=== PATIENT | male | born 1995 | race Two or more races ===

== ENCOUNTER 2020-10-28 17:25 | Emergency (ER) | payer OTHER ==
--- NOTE | 2020-10-28 18:21 | XRAY Report ---
PROCEDURE: Hand 3 View RT INDICATIONS: Trauma TECHNIQUE: 3 views of the hand(s) acquired. COMPARISON: None FINDINGS: Bones: No acute fractures or dislocations. No suspicious bony lesions. Soft tissues: No suspicious soft tissue calcifications. IMPRESSION: Right hand without acute fracture or dislocation. If there is persistent clinical concern for a radiographically occult fracture, recommend immobilizat ion and repeat imaging in 10 to 14 days. Reviewed by: Quentin Bean MD on 10/28/2020 6:19 PM PDT Approved by: Quentin Bean MD on 10/28/2020 6:19 PM PDT Station ID: [id number]
[2020-10-28] MEDS: BACITRACIN ZINC OINT 1 PACKET TOP STA (19:41)
[2020-10-28] MEDS: IBUPROFEN 600 MG TABLET PO STA (19:41)
--- NOTE | 2020-10-28 19:45 | ED Physician Documentation ---
History of Present Illness - Stated complaint Stated Complaint: RT FINGER INJ - Chief complaint Chief Complaint: Trauma Ext - Additonal information Additional information: 25-year-old male here with right ring finger nail avulsion as well as a contusion to the middle finger. He was using a wrench at work at slipped and he drove his hand into the ground. He has a partial avulsion of the right ring finger nailbed. Minor contusion to the middle finger. No history of previous injury. Patient is right-hand dominant. Review of Systems Constitutional: reports: Reviewed and negative Ears: reports: Reviewed and negative Nose: reports: Reviewed and negative Throat: reports: Reviewed and negative Cardiac: reports: Reviewed and negative Respiratory: reports: Reviewed and negative : reports: Reviewed and negative Skin: reports: Abrasion (s) (Right hand right ring finger nailbed) Musculoskeletal: reports: Extremity pain (Right hand) PD PAST MEDICAL HISTORY - Allergies Allergies/Adverse Reactions: Allergies Allergy/AdvReac Type Severity Reaction Status Date / Time Penicillins Allergy Rash Verified 10/28/20 17:43 PD ED PE EXPANDED - Extremities Extremities: Right hand (Tenderness of the distal right ring finger and PIP joint of the middle finger. Normal flexion extension against resistance. Normal grasp. Warm hand 2+ radial pulse.), Right finger(s) (Right ring finger with partial avulsion of the nail bed. The avulsed nail is trimmed away r evealing about 40% of the nailbed.) Results - Vitals Vitals: Vital Signs - 24 hr 10/28/20 17:43 Temperature 36.6 C Heart Rate 56 L Respiratory 16 Rate Blood Pressure 130/80 O2 Saturation 98 Oxygen O2 Source Room air - Rads (name of study) Right hand Radiology: Final report received (No acute fracture or dislocation) PD MEDICAL DECISION MAKING - ED course Complexity details: reviewed results, re-evaluated patient, d/w patient ED course: 25-year-old male presents to the ER with a right hand injury after his hand was driven into the ground while using a wrench. He does have a partial right nailbed avulsion. The avulsed nail was trimmed away. He also has a minor contusion of the PIP joint of the middle finger. X-ray does not reveal any obvious fractures and he is able to move and use the hand normally. Bacitracin applied to the contusion and avulsion injury. Recommend ibuprofen follow-up with [facility]. Emergent return precautions were discussed. Departure - Departure Disposition: 01 Home, Self Care Clinical Impression: Fingernail avulsion, partial Qualifiers: Encounter type: initial encounter Qualified Code(s): S61.309A - Unspecified open wound of unspecified finger with damage to nail, initial encounter Condition: Stable Record reviewed to determine appropriate education?: Yes Comments: Corbin you are seen in the ER today for contusion and avulsion to your right hand. The avulsion is where the nail was lifted away from the nailbed. The x- ray of your hand does not show any broken bones. I expect that your hand will be sore over the next 24 to 48 hours. We trimmed the nail away. You can wash your hand normally. I recommend that you take ibuprofen with food 2-3 times a day to help with discomfort. Apply bacitracin or any antibiotic ointment to the nailbed as well as to the abrasion on your middle finger. This should heal well with time. Follow-up with [facility] if not improving.
[2020-10-28 19:53] VITALS: BP 141/78
== END 2020-10-28 19:53 | disposition home or self-care (01) ==
LOC: ED 17:25
DX: S60.141A Contusion of right ring finger with damage to nail, initial encounter (principal); W27.8XXA Contact with other nonpowered hand tool, initial encounter; Y99.0 Civilian activity done for income or pay
CPT/HCPCS: 73130; 99281; 99283; A9270

== ENCOUNTER 2022-05-09 17:34 | Emergency (ER) | payer OTHER ==
[2022-05-09 17:43] VITALS: BP 138/77
--- OUTSIDE RECORDS SUMMARY | 2022-05-09 17:51 | EXTERNAL MEDICAL SUMMARY RPT | Continuity of Care Document ---
:1995 Author Organization [facility] Address [address] [place] [address] Phone Allergies No information. Encounters No information. Functional Status No information. Immunizations No information. Medications No information. Problems No information. Procedures No information. Results/Labs test date author facility value unit interpret ation Result panel 1 (unknown) (no (unknown) (unknown) (no value) (units (unk nown) date) unknown) (unknown) (no (unknown) (unknown) [id number] (units (unkno wn) date) unknown) (unknown) (no (unknown) (unknown) 02/03/22 (units (unkno wn) date) unknown) (unknown) (no (unknown) (unknown) [address] [place] [address] (units (unknown) date) unknown) (unknown) (no (unknown) (unknown) Accession Number: (units (unknown) date) [id number] unknown) (unknown) (no (unknown) (unknown) Age/Sex: 26 / M (units (unknown) date) Date of Service: unknown) (unknown) (no (unknown) (unknown) [place], [place] (units ( unknown) date) [id number] unknown) (unknown) (no (unknown) (unknown) Approved by: Karsten (units (unknown) date) Ross Parekh on unknown) 2022 at 15:56 (unknown) (no (unknown) (unknown) COMPARISON: None. (units (unknown) date) unknown) (unknown) (no (unknown) (unknown) : 1995 (units (unknown) date) Acct:[id number] unknown) (unknown) (no (unknown) (unknown) Dictated by: Karsten (units (unknown) date) Ross Parekh on unknown) 2022 at 15:56 (unknown) (no (unknown) (unknown) FINDINGS: A single (units (unknown) date) fluoroscopic spot unknown) image demonstrates intra-articular (unknown) (no (unknown) (unknown) Gadolinium (units (unk nown) date) unknown) (unknown) (no (unknown) (unknown) IMPRESSION: (units (un known) date) Successful unknown) fluoroscopically guided administration of dilute (unknown) (no (unknown) (unknown) INDICATIONS: PAIN (units (unknown) date) IN LEFT SHOULDER unknown) (unknown) (no (unknown) (unknown) [facility] (units (unknown) date) unknown) (unknown) (no (unknown) (unknown) Loc: RAD (units (unkno wn) date) unknown) (unknown) (no (unknown) (unknown) Ordering Provider: (units (unknown) date) Camron Shah MD unknown) (unknown) (no (unknown) (unknown) PROCEDURE: FL (units ( unknown) date) SHOULDER INJECTION unknown) MR/CT LT (unknown) (no (unknown) (unknown) Patient: (units (unkno wn) date) Corbin Balbuena MR#: unknown) M00 (unknown) (no (unknown) (unknown) Procedure: FL (units ( unknown) date) shoulder injection unknown) mr/ct LT (unknown) (no (unknown) (unknown) Signed (units (unkno wn) date) unknown) (unknown) (no (unknown) (unknown) TECHNIQUE: (units (unk nown) date) unknown) (unknown) (no (unknown) (unknown) The indications, (units (unknown) date) alternatives, unknown) benefits, risks, and complications of the (unknown) (no (unknown) (unknown) The needle was (units (unknown) date) removed and a unknown) dressing was applied. The patient was given (unknown) (no (unknown) (unknown) The shoulder was (units (unknown) date) examined unknown) fluoroscopically and a site for needle placement (unknown) (no (unknown) (unknown) This was followed (units (unknown) date) by approximately 12 unknown) mL dilute solution of a gadolinium (unknown) (no (unknown) (unknown) XRay Report (units (un known) date) unknown) (unknown) (no (unknown) (unknown) amount of (units (unkn own) date) unknown) (unknown) (no (unknown) (unknown) capsule. A spinal (units (unknown) date) needle was inserted unknown) into the glenohumeral joint, and a small (unknown) (no (unknown) (unknown) chosen for (units (unk nown) date) unknown) (unknown) (no (unknown) (unknown) containing MR (units ( unknown) date) unknown) (unknown) (no (unknown) (unknown) contrast agent. (units (unknown) date) unknown) (unknown) (no (unknown) (unknown) draped in a (units (un known) date) sterile fashion, unknown) and 1% lidocaine infiltrated from skin down to (unknown) (no (unknown) (unknown) entry into the (units (unknown) date) glenohumeral joint unknown) from an anterior approach. The skin was (unknown) (no (unknown) (unknown) explained to the (units (unknown) date) patient. Written unknown) informed consent was obtained and placed in (unknown) (no (unknown) (unknown) injected iodinated (units (unknown) date) contrast. unknown) (unknown) (no (unknown) (unknown) instructions and (units (unknown) date) sent to the MR unknown) suite for MR imaging. (unknown) (no (unknown) (unknown) iodinated contrast (units (unknown) date) media injected to unknown) confirm intra-articular placement of the (unknown) (no (unknown) (unknown) joint (units (unkno wn) date) unknown) (unknown) (no (unknown) (unknown) location of (units (un known) date) unknown) (unknown) (no (unknown) (unknown) needle tip. (units (un known) date) unknown) (unknown) (no (unknown) (unknown) postprocedural (units (unknown) date) unknown) (unknown) (no (unknown) (unknown) prepped and (units (un known) date) unknown) (unknown) (no (unknown) (unknown) procedure were (units (unknown) date) unknown) (unknown) (no (unknown) (unknown) solution into the (units (unknown) date) shoulder joint for unknown) MR arthrogram. (unknown) (no (unknown) (unknown) the chart. (units (unk nown) date) unknown) Social History No information. Vital Signs No information.
--- NOTE | 2022-05-09 17:58 | XRAY Report ---
PROCEDURE: Ankle 3 View RT INDICATIONS: fall, pain with ambulation TECHNIQUE: 3 views of the ankle were acquired. COMPARISON: None FINDINGS: Bones: No fractures or dislocations. Ankle mortise is normally aligned. No suspicious bony lesions . Soft tissues: Lateral ankle soft tissue swelling is seen. No tibiotalar joint effusion. Achilles te ndon appears normal. IMPRESSION: Lateral ankle soft tissue swelling. No acute ankle fracture or dislocation. Ankle mortis e is congruent. Reviewed by: Yfn Delaney MD on 05/09/2022 5:57 PM PST Approved by: Yfn Delaney MD on 05/09/2022 5:57 PM PST Station ID: [id number]
--- NOTE | 2022-05-09 18:19 | ED Physician Documentation ---
History of Present Illness - Stated complaint Stated Complaint: R ANKLE INJ - Chief complaint Chief Complaint: Ext Problem - Additonal information Additional information: 27-year-old male presents emergency department for evaluation of acute right lateral ankle pain. He rolled his ankle yesterday evening. Initially did not think much of it and was not ambulatory. However overnight his lateral ankle swelled and he has had difficulty bearing weight since. No history of previous injury. History provided by patient. He is a good historian. Review of Systems Constitutional: reports: Reviewed and negative Ears: reports: Reviewed and negative Throat: reports: Reviewed and negative Cardiac: reports: Reviewed and negative Respiratory: reports: Reviewed and negative GI: reports: Reviewed and negative Musculoskeletal: reports: Joint pain PD PAST MEDICAL HISTORY - Past Surgical History Past Surgical History: No - Allergies Allergies/Adverse Reactions: Allergies Allergy/AdvReac Type Severity Reaction Status Date / Time Penicillins Allergy Rash Verified 10/28/20 17:43 - Social History Does the pt smoke?: No Smoking Status: Never smoker Does the pt drink ETOH?: Yes Does the pt have substance abuse?: No - Immunizations Immunizations are current?: Yes PD ED PE EXPANDED - Extremities Extremities: Right ankle (Mild swelling of the lateral malleolus without ecchymosis. Tenderness just below the lateral malleolus. Full range of motion of the right ankle in all planes. No tenderness at the base of the fifth metatarsal. No tenderness to the Achilles. 2+ DP pulse.) Results - Vitals Vitals: Vital Signs - 24 hr 05/09/22 17:40 Temperature 36.3 C L Heart Rate 92 Respiratory 16 Rate Blood Pressure 138/77 H O2 Saturation 96 Oxygen O2 Source Room air - Rads (name of study) right ankle Radiology: Final report received (No acute fracture or osseous lesion or dislocation.) PD Medical Decision Making - ED course Complexity details: considered differential, d/w patient ED course: 27-year-old male presents emergency department for evaluation of right lateral ankle pain. Rolled his ankle yesterday evening. Initially was ambulatory but after waking up this morning with increased swelling has had difficulty bearing weight. Reveals no acute fracture. History and exam most suggestive of acute sprain. Patient was placed in an air splint as well as given crutches. We discussed routine conservative care of ankle sprains. Motrin and Tylenol advised [id number] for analgesia. Emergent worrisome return precautions discussed Departure - Departure Disposition: 01 Home, Self Care Clinical Impression: Right ankle sprain Qualifiers: Encounter type: initial encounter Involved ligament of ankle: unspecified ligament Qualified Code(s): S93.401A - Sprain of unspecified ligament of right ankle, initial encounter Condition: Stable Record reviewed to determine appropriate education?: Yes Instructions: ED Sprain Ankle Comments: Corbin the x-ray of your ankle does not show an broken bone. Your history and exam is most suggestive of an ankle sprain. Please use the air splint when out of bed for the next week. I encourage you to gently range her ankle while sitting in a couch or chair 2-3 times a day. You can take ibuprofen and Tylenol [id number] for discomfort. Most ankle sprains will begin to feel better after 5 to 7 days. If you find that your symptoms or not improving follow-up with your primary care provider or return emergently to the ER
== END 2022-05-09 18:32 | disposition home or self-care (01) ==
LOC: ED 17:34
DX: S93.401A Sprain of unspecified ligament of right ankle, initial encounter (principal); X50.1XXA Overexertion from prolonged static or awkward postures, initial encounter
CPT/HCPCS: 99283